=== PATIENT | male | born 2000 | race Caucasian/White ===

== ENCOUNTER 2025-01-14 17:46 | Emergency (ER) | payer SELFPAY ==
[2025-01-14 17:55] VITALS: BP 147/89; PULSE 85; TEMP 37; O2SAT 100; BMI 26.5
--- OUTSIDE RECORDS SUMMARY | 2025-01-14 17:58 | XMS_ITS | Data Portability ---
Author Organization [place] - [employer] [facility] Address [address] [place] [address] Assessment Encounter Date Assessment Date Assessment LastModified by Organization Details LastModified Time 09/04/2024 09/04/2024 most likely flu ddx--uri vs common cold vs covid 19 vs flu vs other etiology follow up with pcp in 2--3 days, sooner if any worsening of sx pt is aware and understands call back as needed available 20/01 if not better, rec to go to local dr rec lots of fluids rec home remedies rec to boost up immune system rec covid 19 test rec flu test rx--tamiflu 75 mg bid s.e explained rec tylenol, otc s.e on label defers note for work [id number] Not available 09/04/2024 15:09:45 Plan of Treatment Reminders Order Date Submit Date Provider Last Modified By Organization Details Last Modified Time Details Appointments None recorded. Lab None recorded. Referral None recorded. Procedures None recorded. Surgeries None recorded. Imaging None recorded. Medication Orders Tamiflu 75 mg capsule [address] [facility], [address] [place] [address], [place] [address], [place], [address], 18:03:01 Patient TargetsNo targets recorded. Patient InstructionsNo instructions recorded. Reason for Referral None Reported. Medical Equipment None Reported. Medications Name Sig Start Date Stop Date Status Note LastModified by Organization Details LastModified Time Tamiflu 75 mg capsule Take 1 capsule twice a day by oral route. 025 active Not Available Not Available Not Avai lable Vitals None Recorded Social History None recorded. Functional Status None recorded. Mental Status None recorded. Family History Nothing Reported. Medical History No medical history recorded. Past Encounters Encounter ID Performer Location Encounter Start Date Encounter Closed Date Diagnosis/Indication Diagnosis SNOMED-CT Code Diagnosis ICD10 Code Diagnosis Note [id number] Lo Tejada DO [facility] [address] [place] [address] 09/04/2024 14:49:00 09/04/2024 15:16:18 Influenza-like illness 11417230 B34.9 Health Concerns Section Related Observation LastModified by Organization Detai ls LastModified Time None Recorded Concern Status LastModified by Organization Details LastModified Time None Recorded Advance Directives Directive None Recorded Payers Insurance Date Sequence Insurance Name Policy Number Policy Nair Covered Member ID Nair Member ID Guarantor Name 09/04/2024 1 *SELF PAY* Dylan barbosa Arvind 09/10/2024 1 [facility] [id number] [id number] Mark Kammer 09/06/2024 [facility] [id number] Mark Kammer [id number] Mark Kammer 09/06/2024 2 *SELF PAY* [id number] Mark Kammer [id number] Mark Kammer Notes Date Note Type Note Provider Name and Address Organization Details Recorded Time 09/04/2024 text/html Call accepted. Patient entered symptoms, allergies, medications, all reviewed. Patient greeted. Identity// location/ telephone number confirmed. Verbal consent obtained. Patient made aware of potential limitations of telehealth visit. Clinician attests that they are physically located in the following state at the time of the visit--- [place] pt is in [place] cc- cold hpi- 23 year old male pt with fever, chills, achy, stuffy nose, sore throat, runny nose, cough,flu is going his [place] exposure to covid 19sx started about 2 days agohas tried otc med with min reliefwants rx for tamifluno allergy to any medsno other associated sxno other concerns.PMH_as notedMeds--as noted ros--as noted above; otherwise neg Objective: RR--14. alertWell appearing patient in NAD. Normocephalic. EOMI. Eyes without erythema or injection. Oropharynx--post pharynx--mild erythema. Breath sounds are clear and speech is unlabored to remote audio exam. No accessory breathing muscle use. Mild spontaneous cough noted. Eye contact is normal and speech is fluid. No apparent hallucinationno resp distress Lo Tejada, DO [address] [facility] [address], [place], [address], [facility] 09/04/2024 15:11:36
--- NOTE | 2025-01-14 18:06 | CT_ITS ---
The [place] [id number] Patient Name: ALEXIA MITCHELL MRN: [id number] date: 2000 Sex: M Assigned Patient Location: ER Current Patient Location: ER Accession/Order Number: [id number] Exam Date: 01/14/2025 18:34 Report Date: 01/14/2025 18:37 At the request of: RONALD MORLEY Procedure: CT head/brain wo con CT head/brain wo con 01/14/2025 6:21 PM SIGNS AND SYMPTOMS: ^injury left parietal scalp, headache, nausea TECHNIQUE:Multi-detector CT axial slices of the brain were obtained without IV contrast. CT was performed with one or more of the following dose reduction techniques: Automated exposure control, adjustment of the mA and/or kV according to patient size, or use of iterative reconstruction technique. COMPARISON: None. FINDINGS: There is no shift of the midline structures, acute intracranial bleeding, mass effects, or evidence of acute ischemia. The ventricular system is normal in size. The brainstem and the cerebellum are unremarkable. The visualized intraorbital contents, the visualized paranasal sinuses, and the infratemporal soft tissues show no acute abnormality. The osseous structures in the skull base and the calvarium show no abnormality. CT/CT head/brain wo con IMPRESSION: Normal noncontrasted CT brain. Impression dictated by: Wil Walter M.D. 01/14/2025 6:37 PM Dictation Location: [place] [address] Electronically authenticated by: [id number] Y Date: 01/14/2025 18:37
--- NOTE | 2025-01-14 18:08 | PC.NURSE ---
stepped on a braanch 2 days ago and it came and popped him in the head - still having nausea and headache
--- NOTE | 2025-01-14 18:44 | ED_ITS ---
HPI HPI - Head Injury General Chief complaint: Head Injury Stated complaint: HEAD INJURY Time Seen by Provider: 01/14/25 17:51 Source: patient Mode of arrival: walk-in Limitations: no limitations History of Present Illness HPI Narrative: 24-year-old male presents here with chief complaint of accidental head injury. He was struck in the head with a tree branch 2 days ago. he stepped on a branch to try to break into and broke the branch and the end of the branch came back and kicked him in the side of the left parietal scalp area. Tenderness to the scalp to the area, no bruising swelling or hematoma noted. He did not lose consciousness. He states over the last 24 hours he had increased headache. No blurred vision or double vision. Alert and oriented x 4. He has no significant neurological symptoms. Related Data Allergies Allergy/AdvReac Type Severity Reaction Status Date / Time sulfamethoxazole (From Allergy Unknown Unknown Verified 01/14/25 17:55 Bactrim) trimethoprim (From Bactrim) Allergy Unknown Unknown Verified 01/14/25 17:55 Opioid HPI Opioid Management Most Recent Pain and Opioid Data: Last Pain Scale 4 Today, 17:55 Review of Systems ROS Status of ROS 10 or more systems reviewed and unremark able except as noted in history and below PFSH PFSH Social History Little interest or pleasure in doing things: not at all Feeling down, depressed, or hopeless: not at all Exam Narrative Exam Narrative: All Systems are negative except as noted/marked.All systems reviewed and otherwise negative Nurses note and vital signs reviewed and patient is not hypoxic. General: The patient appears well and in no apparent distress. Patient is resting comfortably on cart. Skin: Warm, dry, no pallor noted. There is no rash noted. Head: Normocephalic, atraumatic Eye: Normal conjunctiva, no drainage, EOMI. PERRL Ears, Nose, Mouth, and Throat: oral mucosa is moist. Nares patent. Mouth without vesicles. Ear canals patent. Tm's without Erythema Cardiovascular: Regular Rate and Rhythm Respiratory: Patient is in no distress, no accessory muscle use, lungs are clear to auscultation, no wheezing, rales or rhonchi Back: non-tender, no CVA tenderness bilaterally to percussion. GI: Normal bowel sounds, no tenderness to palpation, no masses appreciated. No rebound, guarding, or rigidity noted. Musculoskeletal: The patient has no evidence of calf tenderness, no pitting edema, symmetrical pulses noted bilaterally Neurological: A&O x4, normal speech Psychiatric: Cooperative Constitutional Vital Signs, click to edit/add: Last Vital Signs Temp 98.6 F 01/14/25 17:55 Pulse 85 01/14/25 17:55 Resp 18 01/14/25 17:55 BP 147/89 H 01/14/25 17:55 Pulse Ox 100 01/14/25 17:55 O2 Del Method Room Air 01/14/25 17:55 Course Vital Signs Vital signs: Vital Signs Temperature 98.6 F 01/14/25 17:55 Pulse Rate 85 01/14/25 17:55 Respiratory Rate 18 01/14/25 17:55 Blood Pressure 147/89 H 01/14/25 17:55 Pulse Oximetry 100 01/14/25 17:55 Oxygen Delivery Method Room Air 01/14/25 17:55 Temperature 98.6 F 01/14/25 17:55 Pulse Rate 85 01/14/25 17:55 Respiratory Rate 18 01/14/25 17:55 Blood Pressure 147/89 H 01/14/25 17:55 Pulse Oximetry 100 01/14/25 17:55 Oxygen Delivery Method Room Air 01/14/25 17:55 MDM - Head Injury MDM Narrative Medical decision making narrative: 24-year-old male presents here with chief complaint of accidental head injury. He was struck in the head with a tree branch 2 days ago. he stepped on a branch to try to break into and broke the branch and the end of the branch came back and kicked him in the side of the left parietal scalp area. Tenderness to the scalp to the area, no bruising swelling or hematoma noted. He did not lose consciousness. He states over the last 24 hours he had increased headache. No blurred vision or double vision. Alert and oriented x 4. He has no significant neurological symptoms. Patient presented here with chief complaint of headache and nausea. Patient exhibits signs and symptoms postconcussive syndrome. Head CT was requested by patient. CT was performed and read negative by radiology. Patient discharged home with close head injury and postconcussive syndrome instructions. Differential Diagnosis Differential diagnosis: Likely concussion without loss of consciousness, epidural hematoma, closed head injury and subarachnoid hematoma Medical Records Attestation: I reviewed the patient's medical records. Imaging Data CT scan - head: Radiologist's impression: ITS Impressions Head CT 01/14/25 18:06 IMPRESSION: Normal noncontrasted CT brain. Impression dictated by: Wil Walter M.D. 01/14/2025 6:37 PM Dictation Location[facility] Electronically authenticated by: [id number] Y Date: 01/14/2025 18:37 Discharge Plan Discharge Chief Complaint: Head Injury Clinical Impression: Closed head injury, Concussion without loss of consciousness Patient Disposition: Home, Self-Care Time of Disposition Decision: 18:43 Condition: Good Print Language: Yoruba Instructions: Head Injury (ED), Post Concussion Syndrome (ED) Referrals: Physician,Non-Staff, MD [Primary Care Provider] - 1 week
== END 2025-01-14 18:49 | disposition home or self-care (01) ==
PROVIDERS: Emergency Provider Emergency Medicine
DX: S06.0X0A Concussion without loss of consciousness, initial encounter (principal); S09.8XXA Other specified injuries of head, initial encounter; W22.8XXA Striking against or struck by other objects, initial encounter
CPT/HCPCS: 70450; 99284